=== PATIENT | female | born 1990 | race Caucasian/White ===

== ENCOUNTER → 2019-01-30 14:19 | Outpatient (REF) | payer OTHER, SELFPAY | LOC: LAB 14:19 | PROVIDERS: Visit Provider Internal Medicine | DX: R50.9 Fever, unspecified (principal); R05 Cough | CPT/HCPCS: 87400 ==

== ENCOUNTER 2019-07-19 18:54 | Emergency (ER) | payer OTHER, SELFPAY ==
[2019-07-19 19:00] VITALS: BP 146/71; PULSE 83; RESP 18; TEMP 36.9; O2SAT 99
--- NOTE | 2019-07-19 19:35 | DI.CT.S_ITS ---
PROCEDURE: CT CERVICAL SPINE WO CON INDICATIONS: head injury with memory loss TECHNIQUE: Noncontrast 3 mm thick sections acquired from the skull base to the T4 level. Sagittal and coronal reformats were then constructed. For radiation dose reduction, the following was used: automated exposure control, adjustment of mA and/or kV according to patient size. COMPARISON: [facility], CT, CT HEAD/BRAIN WO CON, 07/19/2019, 20:13. FINDINGS: Image quality: Excellent. Bones: No fractures or dislocations. Visualized superior ribs are intact. Soft tissues: Prevertebral soft tissues are normal in thickness. No paravertebral hematomas. No apical pneumothoraces. Note is made of small air-fluid levels within the maxillary sinuses bilaterally, partially visualized. IMPRESSION: No trauma found. Small to moderate bilateral maxillary sinus air-fluid levels incidentally noted, more likely inflammatory than from trauma by appearance. These are only partially visualized. Dictated by: Jeremias Liu M.D. on 07/19/2019 at 20:44 Approved by: Jeremias Liu M.D. on 07/19/2019 at 20:46
--- NOTE | 2019-07-19 19:35 | DI.CT.S_ITS ---
PROCEDURE: CT HEAD/BRAIN WO CON INDICATIONS: head injury with memory loss TECHNIQUE: Noncontrast 4.5 mm thick angled axial sections acquired from the foramen magnum to the vertex, with coronal and sagittal reformats. For radiation dose reduction, the following was used: automated exposure control, adjustment of mA and/or kV according to patient size. COMPARISON: None. FINDINGS: Image quality: Excellent. CSF spaces: Basal cisterns are patent. No extra-axial fluid collections. Ventricles are normal in size and shape. Brain: No midline shift. No intracranial masses or hemorrhage. Culver-white matter interface is normal. Skull and face: Calvarium and visualized facial bones are intact, without suspicious lesions. Sinuses: Visualized sinuses and mastoids are clear. IMPRESSION: Trauma to the head is not identified, source of memory loss is not found. Dictated by: Jeremias Liu M.D. on 07/19/2019 at 20:43 Approved by: Jeremias Liu M.D. on 07/19/2019 at 20:44
--- NOTE | 2019-07-19 19:36 | DI.RAD.S_ITS ---
PROCEDURE: XR ANKLE RT 2V INDICATIONS: Fall, R ankle pain TECHNIQUE: 2 views of the ankle were acquired. COMPARISON: [facility], , ANKLE 3 VIEWS RIGHT, 06/19/2008, 17:06. FINDINGS: Bones: No fractures or dislocations. Ankle mortise is normally aligned. No suspicious bony lesions. Soft tissues: No tibiotalar joint effusion. Achilles tendon appears normal. IMPRESSION: No trauma found. Dictated by: Jeremias Liu M.D. on 07/19/2019 at 20:48 Approved by: Jeremias Liu M.D. on 07/19/2019 at 20:49
--- NOTE | 2019-07-19 19:36 | DI.RAD.S_ITS ---
PROCEDURE: XR SHOULDER LT MIN 2V INDICATIONS: Left shoulder pain after fall. TECHNIQUE: 3 views of the shoulder were acquired. COMPARISON: None. FINDINGS: Bones: No fractures or dislocations. No suspicious bony lesions. Visualized ribs appear intact. Soft tissues: No suspicious soft tissue calcifications. IMPRESSION: Normal for age, source of current pain after trauma symptoms is not seen. Dictated by: Jeremias Liu M.D. on 07/19/2019 at 20:47 Approved by: Jeremias Liu M.D. on 07/19/2019 at 20:48
--- NOTE | 2019-07-19 19:41 | ED.HEATRA ---
HPI - Head Injury <JULIA Jara - Last Filed: 07/19/19 21:44> General Chief complaint: Head Injury Stated complaint: GLF, hit head change in mood and disposition Time Seen by Provider: 07/19/19 18:57 Source: patient and family Mode of arrival: ambulatory Limitations: no limitations History of Present Illness HPI Narrative: 29-year-old healthy female, presents emergency department today with her . Her states he found her at home acting ?loopy ?, he states he walked into the bathroom and found laundry detergent, Q-tips, and water all over, he also found the toilet broken. When he questions his she did not know how any of this happened, she did not know where her phone was, and has been states she told her breath when she did not have talked at her which was extremely unusual. Patient states she remembers the last thing being she was sitting on the toilet unsure remembers her coming home but does not remember anything that happened in between those events. Her thinks that she either tripped and hit her head or passed out. She has a history of syncopal episodes, denies any history of seizures. states that she is progressively regaining her normal mental status. She also complains of hematoma to her left forehead, left shoulder spasm, and a constant 3/10 aching pain as well as the constant right ankle 2/10 pain. Patient denies any headaches, dizziness, chest pain, fevers, shortness of breath, abdominal pain, vomiting, diarrhea, nausea, limb weakness, or vision loss. She denies any ingestion of drugs. Her states that she has not and ever ingested any drugs and does not believe she has done that. She also reports abrasions to her shins bilaterally. Related Data Home Medications Medication Instructions Recorded Confirmed No Known Home Medications 07/19/19 07/19/19 Allergies Allergy/AdvReac Type Severity Reaction Status Date / Time No Known Drug Allergies Allergy Verified 07/19/19 19:04 Review of Systems <JULIA Jara - Last Filed: 07/19/19 21:44> Review of Systems Narrative: REVIEW OF SYSTEMS: GENERAL: Denies fever or chills. HENT: Complains of head trauma, see HPI. EYES: No loss of vision, double vision, eye pain, or irritation. CARDIOVASCULAR: No chest pain or syncope. RESPIRATORY: No shortness of breath or cough. GASTROINTESTINAL: No nausea, vomiting, diarrhea, or constipation. GENITOURINARY: No flank pain or dysuria. MUSCULOSKELETAL: Complains of right ankle and left shoulder pain, see HPI. INTEGUMENTARY: No rash, lesions, or pruritus. NEURO: Reports of memory loss, see HPI. PSYCH: Reports behavior changes, see HPI. PFSH <JULIA Jara - Last Filed: 07/19/19 21:44> Medical History No significant medical problems (Acute) Social History Smoking Status: Current some day smoker Social History Smoking Status: Current some day smoker Exam <JULIA Jara - Last Filed: 07/19/19 21:44> Initial Vital Signs Initial Vital Signs: Vital Signs Temperature 98.4 F 07/19/19 19:00 Pulse Rate 83 07/19/19 19:00 Respiratory Rate 18 07/19/19 19:00 Blood Pressure 146/71 H 07/19/19 19:00 Pulse Oximetry 99 07/19/19 19:00 PHYSICAL EXAMINATION: GENERAL: Well groomed, alert, and cooperative. Answers questions promptly and appropriately. Vital signs noted. Has been states she is still acting a little ?goofy ?. HENT: 4 cm x 4 cm hematoma to left forehead with slight tenderness on palpation. No tenderness to palpation of other parts of skull. Ear canals patent without blood. Oral mucosa is pink and moist. Patient appears to have bitten the left side of her tongue, bleeding controlled. EYES: EMOIs, PERRLA, Conjunctiva pink, sclera white, no periorbital swelling. NECK: Nontender to palpation, however reports that she does not have her normal mentation status the nexus criteria cannot be used. CHEST: Normal to inspection and without deformities. CARDIOVASCULAR: S1 and S2 sounds normal. Regular rate and rhythm, no murmurs, clicks, or bruits. No pedal edema. RESPIRATORY: Normal respiratory rate, trachea midline, airway patent. No stridor, nasal flaring or accessory muscle use. Lungs are clear in all swanson without wheeze, rhonchi, or crackles. GASTROINTESTINAL: Bowel sounds normoactive. Abdomen is soft and non-tender. No organomegaly. MUSCULOSKELETAL: Tenderness to palpation of anterior aspect of right ankle, small hematoma 1cm in diameter noted, full range of motion. Tenderness to left shoulder, full range of motion, no swelling or ecchymosis present. Superficial abrasions noted to shins bilaterally. No tenderness to thoracic or cervical spine. Normal gait and coordination. Equal tone and mass bilaterally. EXTREMITIES: CMS intact. Moves all extremities. SKIN: Warm, dry, soft, appropriate color for ethnicity. No lesions, rashes, or wounds. NEURO: Alert and Oriented X 3. Good coordination. No ataxia, or sensory deficits, or cognitive issues. NIH score 0. PSYCH: Appropriate affect and mood. <Carin Adams DO - Last Filed: 07/24/19 05:49> Initial Vital Signs Initial Vital Signs: Vital Signs Temperature 98.4 F 07/19/19 19:00 Pulse Rate 83 07/19/19 19:00 Respiratory Rate 18 07/19/19 19:00 Blood Pressure 146/71 H 07/19/19 19:00 Pulse Oximetry 99 07/19/19 19:00 Scores <JULIA Jara - Last Filed: 07/19/19 21:44> NIH Stroke Scale Level of Conciousness: Alert, keenly responsive Ask month/age: Answers both questions correctly. Open/close eyes, close hand: Performs both tasks correctly Best gaze horizontal: Normal Visual swanson: No visual loss Facial palsy: Normal symetrical movement Left arm drift: No drift for full 10 sec Right arm drift: No drift for full 10 sec Left leg drift: No drift for full 10 sec Right leg drift: No drift for full 10 sec Limb ataxia: Absent Sensory on face/arms/legs: Normal, no sensory loss Best language: No aphasia, normal Dysarthria: Normal Extinction or inattention: No abnormality Total NIH Stroke scale score: 0 Course <JULIA Jara - Last Filed: 07/19/19 21:44> Course Course Narrative: Patient's relates that her mentation status has returned to normal after the testing. Patient continues to deny headaches or back pain. Orders Ordered: ED Orders 07/19/19 19:30 Complete Blood Count AUTO DIFF Stat Ethanol (ETOH) Stat Partial Thromboplastin Time Stat Prothrombin Time INR Stat 07/19/19 19:35 CT cervical spine wo con Stat CT head/brain wo con Stat 07/19/19 19:36 XR ankle RT 2V Stat XR shoulder LT min 2V Stat 07/19/19 19:55 Urine Drug Screen, Rapid Stat Consultations Consultation #1: Patient was staffed [facility] Dr[facility] Jolley. Vital Signs Vital signs: Vital Signs - 8 hr 07/19/19 19:00 Temperature 98.4 F Pulse Rate 83 Respiratory Rate 18 Blood Pressure 146/71 H Pulse Oximetry 99 <Carin Adams DO - Last Filed: 07/24/19 05:49> Orders Ordered: ED Orders 07/19/19 19:30 Complete Blood Count AUTO DIFF Stat Ethanol (ETOH) Stat Partial Thromboplastin Time Stat Prothrombin Time INR Stat 07/19/19 19:35 CT cervical spine wo con Stat CT head/brain wo con Stat 07/19/19 19:36 XR ankle RT 2V Stat XR shoulder LT min 2V Stat 07/19/19 19:55 Urine Drug Screen, Rapid Stat Vital Signs Vital signs: Vital Signs - 8 hr 07/19/19 19:00 Temperature 98.4 F Pulse Rate 83 Respiratory Rate 18 Blood Pressure 146/71 H Pulse Oximetry 99 MDM - Head Injury <JULIA Jara - Last Filed: 07/19/19 21:44> Medical Records Attestation: I reviewed the patient's medical records. Lab Data Attestation: I reviewed the patient's lab results. Result diagrams: 07/19/19 19:30 Labs: Lab Results 07/19/19 07/19/19 07/19/19 Range/Units 19:30 19:30 19:30 WBC 6.8 (4.5-11.0) X10^3/uL RBC 4.36 (4.0-5.2) X10^6/uL Hgb 14.3 (12.0-16.0) g/dL Hct 41.4 (36-46) % MCV 95.0 (80-100) fL MCH 32.8 (26-34) PG MCHC 34.5 (30-36) % RDW 12.5 (11.6-14.8) % Plt Count 180 (150-400) X10^3/uL Neut % (Auto) 73.2 (50-75) % Lymph % (Auto) 15.6 L (25-40) % [place] % (Auto) 9.8 (3-14) % Eos % (Auto) 0.6 L (2-4) % Baso % (Auto) 0.8 (0-2) % Neut # (Auto) 5000 (8971-9443) /uL Lymph # (Auto) 1100 (5393-9225) /uL [place] # (Auto) 700 (0-900) /uL Eos # (Auto) 0 (0-450) /uL Baso # (Auto) 100 (0-100) /uL PT 11.8 (10.1-12.7) SECONDS INR 1.0 (0.9-1.3) APTT 27 (26.4-36.2) SECONDS Urine Opiates Screen (Negative) Ur Oxycodone Screen (Negative) Urine Methadone Screen (Negative) Ur Barbiturates Screen (Negative) U Tricyclic Antidepress (Negative) Ur Phencyclidine Scrn (Negative) Ur Amphetamines Screen (Negative) U Methamphetamines Scrn (Negative) Ur MDMA Scrn (Ecstasy) (Negative) U Benzodiazepines Scrn (Negative) Urine Cocaine Screen (Negative) U Marijuana (THC) Screen (Negative) Ethyl Alcohol < 10 ( - 10) mg/dL 07/19/19 Range/Units 19:55 WBC (4.5-11.0) X10^3/uL RBC (4.0-5.2) X10^6/uL Hgb (12.0-16.0) g/dL Hct (36-46) % MCV (80-100) fL MCH (26-34) PG MCHC (30-36) % RDW (11.6-14.8) % Plt Count (150-400) X10^3/uL Neut % (Auto) (50-75) % Lymph % (Auto) (25-40) % [place] % (Auto) (3-14) % Eos % (Auto) (2-4) % Baso % (Auto) (0-2) % Neut # (Auto) (7901-6172) /uL Lymph # (Auto) (9886-4682) /uL [place] # (Auto) (0-900) /uL Eos # (Auto) (0-450) /uL Baso # (Auto) (0-100) /uL PT (10.1-12.7) SECONDS INR (0.9-1.3) APTT (26.4-36.2) SECONDS Urine Opiates Screen Negative (Negative) Ur Oxycodone Screen Negative (Negative) Urine Methadone Screen Negative (Negative) Ur Barbiturates Screen Negative (Negative) U Tricyclic Antidepress Negative (Negative) Ur Phencyclidine Scrn Negative (Negative) Ur Amphetamines Screen Negative (Negative) U Methamphetamines Scrn Negative (Negative) Ur MDMA Scrn (Ecstasy) Negative (Negative) U Benzodiazepines Scrn Negative (Negative) Urine Cocaine Screen Negative (Negative) U Marijuana (THC) Screen Negative (Negative) Ethyl Alcohol ( - 10) mg/dL Point of Care Testing Test Results Negative Urine Dip Bedside Urine Glucose Negative Bedside Urine Bilirubin - Negative Bedside Urine Ketone + 15 Urine Specific [place] 1.020 Bedside Urine Occult Blood - Negative Bedside Urine pH 5.5 Bedside Urine Protein + 30 Bedside Urine Urobilinogen - Negative Bedside Urine Nitrite - Negative Bedside Urine Leukocytes - Negative Esterase Imaging Data Shoulder XR: Radiologist's impression: [address] [address] XRay Report Signed Patient: Dhara Lorenzo EMR#: [id number] : 1990Acct:[id number] Age/Sex: 29 / FDate of Service: 07/19/19 Loc: ED Accession Number: [id number] Procedure: XR shoulder LT min 2V Ordering Provider: Tasia Phipps PROCEDURE: XR SHOULDER LT MIN 2V INDICATIONS: Left shoulder pain after fall. TECHNIQUE: 3 views of the shoulder were acquired. COMPARISON: None. FINDINGS: Bones: No fractures or dislocations. No suspicious bony lesions. Visualized ribs appear intact. Soft tissues: No suspicious soft tissue calcifications. IMPRESSION: Normal for age, source of current pain after trauma symptoms is not seen. Dictated by: Jeremias Liu M.D. on 07/19/2019 at 20:47 Approved by: Jeremias Liu M.D. on 07/19/2019 at 20:48 Ankle XR: Radiologist's impression: [address] [address] XRay Report Signed Patient: Dhara Lorenzo EMR#: [id number] : 1990Acct:[id number] Age/Sex: 29 / FDate of Service: 07/19/19 Loc: ED Accession Number: [id number] Procedure: XR ankle RT 2V Ordering Provider: Tasia Phipps PROCEDURE: XR ANKLE RT 2V INDICATIONS: Fall, R ankle pain TECHNIQUE: 2 views of the ankle were acquired. COMPARISON: [facility], , ANKLE 3 VIEWS RIGHT, 06/19/2008, 17:06. FINDINGS: Bones: No fractures or dislocations. Ankle mortise is normally aligned. No suspicious bony lesions. Soft tissues: No tibiotalar joint effusion. Achilles tendon appears normal. IMPRESSION: No trauma found. Dictated by: Jeremias Liu M.D. on 07/19/2019 at 20:48 Approved by: Jeremias Liu M.D. on 07/19/2019 at 20:49 CT scan - head: Radiologist's impression: [place] [address] CT Scan Report Signed Patient: Dhara Lorenzo EMR#: [id number] : 1990Acct:[id number] Age/Sex: 29 / FDate of Service: 07/19/19 Loc: ED Accession Number: [id number] Procedure: CT head/brain wo con Ordering Provider: Tasia Phipps PROCEDURE: CT HEAD/BRAIN WO CON INDICATIONS: head injury with memory loss TECHNIQUE: Noncontrast 4.5 mm thick angled axial sections acquired from the foramen magnum to the vertex, with coronal and sagittal reformats. For radiation dose reduction, the following was used: automated exposure control, adjustment of mA and/or kV according to patient size. COMPARISON: None. FINDINGS: Image quality: Excellent. CSF spaces: Basal cisterns are patent. No extra-axial fluid collections. Ventricles are normal in size and shape. Brain: No midline shift. No intracranial masses or hemorrhage. Culver-white matter interface is normal. Skull and face: Calvarium and visualized facial bones are intact, without suspicious lesions. Sinuses: Visualized sinuses and mastoids are clear. IMPRESSION: Trauma to the head is not identified, source of memory loss is not found. Dictated by: Jeremias Liu M.D. on 07/19/2019 at 20:43 Approved by: Jeremias Liu M.D. on 07/19/2019 at 20:[address]: Radiologist's impression: [address] [address] [address] Scan Report Signed Patient: Dhara Lorenzo EMR#: [id number] : 1990Acct:[id number] Age/Sex: 29 / FDate of Service: 07/19/19 Loc: ED Accession Number: [id number] Procedure: CT cervical spine wo con Ordering Provider: Tasia Phipps PROCEDURE: CT CERVICAL SPINE WO CON INDICATIONS: head injury with memory loss TECHNIQUE: Noncontrast 3 mm thick sections acquired from the skull base to the T4 level. Sagittal and coronal reformats were then constructed. For radiation dose reduction, the following was used: automated exposure control, adjustment of mA and/or kV according to patient size. COMPARISON: [facility], CT, CT HEAD/BRAIN WO CON, 07/19/2019, 20:13. FINDINGS: Image quality: Excellent. Bones: No fractures or dislocations. Visualized superior ribs are intact. Soft tissues: Prevertebral soft tissues are normal in thickness. No paravertebral hematomas. No apical pneumothoraces. Note is made of small air-fluid levels within the maxillary sinuses bilaterally, partially visualized. IMPRESSION: No trauma found. Small to moderate bilateral maxillary sinus air-fluid levels incidentally noted, more likely inflammatory than from trauma by appearance. These are only partially visualized. Dictated by: Jeremias Liu M.D. on 07/19/2019 at 20:44 Approved by: Jeremias Liu M.D. on 07/19/2019 at 20:46 MDM Narrative Medical decision making narrative: Differential include fall with concussion (most likely due to location of injuries, patient was ambulatory after fall, description of damage done to the bathroom, lasting patient remembers was sitting on the toilet-which could be a possible vagal such as well), seizure (less likely due to location of injury, no history of seizures, however difficult to rule this out), stroke (less likely did NIH score 0, negative CT scan, no risk factors), assault (less likely as story matches injuries on examination, patient denies any safety issues). Less likely cardiac as patient remains in normal sinus rhythm via monitor, a history of heart issues, no cardiac symptoms such as chest pain, no symptoms with exertion). Since symptoms are resolving and her is at home with her, discharge is reasonable. Less likely ingestion as U tox was negative. Less likely concern for fractures as x-rays were negative. Strict return precautions given and follow-up instructions discussed. <Carin Adams, DO - Last Filed: 07/24/19 05:49> Lab Data Labs: Lab Results 07/19/19 07/19/19 07/19/19 Range/Units 19:30 19:30 19:30 WBC 6.8 (4.5-11.0) X10^3/uL RBC 4.36 (4.0-5.2) X10^6/uL Hgb 14.3 (12.0-16.0) g/dL Hct 41.4 (36-46) % MCV 95.0 (80-100) fL MCH 32.8 (26-34) PG MCHC 34.5 (30-36) % RDW 12.5 (11.6-14.8) % Plt Count 180 (150-400) X10^3/uL Neut % (Auto) 73.2 (50-75) % Lymph % (Auto) 15.6 L (25-40) % [place] % (Auto) 9.8 (3-14) % Eos % (Auto) 0.6 L (2-4) % Baso % (Auto) 0.8 (0-2) % Neut # (Auto) 5000 (5484-3886) /uL Lymph # (Auto) 1100 (5835-1166) /uL [place] # (Auto) 700 (0-900) /uL Eos # (Auto) 0 (0-450) /uL Baso # (Auto) 100 (0-100) /uL PT 11.8 (10.1-12.7) SECONDS INR 1.0 (0.9-1.3) APTT 27 (26.4-36.2) SECONDS Urine Opiates Screen (Negative) Ur Oxycodone Screen (Negative) Urine Methadone Screen (Negative) Ur Barbiturates Screen (Negative) U Tricyclic Antidepress (Negative) Ur Phencyclidine Scrn (Negative) Ur Amphetamines Screen (Negative) U Methamphetamines Scrn (Negative) Ur MDMA Scrn (Ecstasy) (Negative) U Benzodiazepines Scrn (Negative) Urine Cocaine Screen (Negative) U Marijuana (THC) Screen (Negative) Ethyl Alcohol < 10 ( - 10) mg/dL 07/19/19 Range/Units 19:55 WBC (4.5-11.0) X10^3/uL RBC (4.0-5.2) X10^6/uL Hgb (12.0-16.0) g/dL Hct (36-46) % MCV (80-100) fL MCH (26-34) PG MCHC (30-36) % RDW (11.6-14.8) % Plt Count (150-400) X10^3/uL Neut % (Auto) (50-75) % Lymph % (Auto) (25-40) % [place] % (Auto) (3-14) % Eos % (Auto) (2-4) % Baso % (Auto) (0-2) % Neut # (Auto) (5091-6947) /uL Lymph # (Auto) (1723-4275) /uL [place] # (Auto) (0-900) /uL Eos # (Auto) (0-450) /uL Baso # (Auto) (0-100) /uL PT (10.1-12.7) SECONDS INR (0.9-1.3) APTT (26.4-36.2) SECONDS Urine Opiates Screen Negative (Negative) Ur Oxycodone Screen Negative (Negative) Urine Methadone Screen Negative (Negative) Ur Barbiturates Screen Negative (Negative) U Tricyclic Antidepress Negative (Negative) Ur Phencyclidine Scrn Negative (Negative) Ur Amphetamines Screen Negative (Negative) U Methamphetamines Scrn Negative (Negative) Ur MDMA Scrn (Ecstasy) Negative (Negative) U Benzodiazepines Scrn Negative (Negative) Urine Cocaine Screen Negative (Negative) U Marijuana (THC) Screen Negative (Negative) Ethyl Alcohol ( - 10) mg/dL Point of Care Testing Test Results Negative Urine Dip Bedside Urine Glucose Negative Bedside Urine Bilirubin - Negative Bedside Urine Ketone + 15 Urine Specific [place] 1.020 Bedside Urine Occult Blood - Negative Bedside Urine pH 5.5 Bedside Urine Protein + 30 Bedside Urine Urobilinogen - Negative Bedside Urine Nitrite - Negative Bedside Urine Leukocytes - Negative Esterase Discharge Plan Departure Patient Disposition: Home Clinical Impression: Closed head injury Qualifiers: Encounter type: initial encounter Qualified Code(s): S09.90XA - Unspecified injury of head, initial encounter Discharge Date/Time: 07/19/19 21:35 Instructions: Concussion, DI for Closed Head Injury Activity Restrictions/Additional Instructions: Thank you for entrusting me with your care today. As discussed, her labs were negative for any concerning findings, your x-rays did not show any fractures. It is possible that you have a mild concussion. Please reduce brain activity such as excessive TV or strenuous exercise for the next week. Follow up with your primary care provider in the next week if needed. Return emergency department if you experience syncope, seizures, high fevers, vomiting, or other concerning symptoms. Prescriptions: No Action No Known Home Medications RF: 0 Stand Alone Forms: Work Release Note
[2019-07-19 19:43] LABS: Add Manual Diff / Slide Review NO; Basophils Absolute Auto 100 /uL (0-100); Basophils Percent Auto 0.8 % (0-2); Eosinophils Absolute Auto 0 /uL (0-450); Eosinophils Percent Auto 0.6 % (2-4); Hematocrit 41.4 % (36-46); Hemoglobin 14.3 g/dL (12.0-16.0); Lymphocytes Absolute Auto 1100 /uL (1100-4500); Lymphocytes Percent Auto 15.6 % (25-40); Mean Corpuscular HGB Conc 34.5 % (30-36); Mean Corpuscular Hemoglobin 32.8 PG (26-34); Monocytes Absolute Auto 700 /uL (0-900); Monocytes Percent Auto 9.8 % (3-14); Neutrophils Absolute Auto 5000 /uL (1500-7000); Neutrophils Percent Auto 73.2 % (50-75); Platelet Count 180 X10^3/uL (150-400); Red Blood Cell Count 4.36 X10^6/uL (4.0-5.2); Red Cell Distribution Width 12.5 % (11.6-14.8); White Blood Cell Count 6.8 X10^3/uL (4.5-11.0)
[2019-07-19 19:51] LABS: Prothrombin Time 11.8 SECONDS (10.1-12.7)
[2019-07-19 19:53] LABS: PTT Partial Thromboplastin Tim 27 SECONDS (26.4-36.2)
[2019-07-19 19:55] LABS: Ethanol (ETOH) < 10 mg/dL
[2019-07-19 20:36] LABS: Urine Amphetamines Negative (Negative); Urine Barbiturates Negative (Negative); Urine Benzodiazepines Negative (Negative); Urine Cocaine Negative (Negative); Urine MDMA Negative (Negative); Urine Methadone Negative (Negative); Urine Methamphetamines Negative (Negative); Urine Morphine/Opi cutoff 2000 Negative (Negative); Urine Oxycodone Negative (Negative); Urine Phencyclidine Negative (Negative); Urine Tetrahydrocannabinol Negative (Negative); Urine Tricyclic Antidepressant Negative (Negative)
[2019-07-19 21:34] VITALS: BP 121/63; PULSE 77; O2SAT 98
== END 2019-07-19 21:35 | disposition home or self-care (01) ==
PROVIDERS: Emergency Provider Nurse Practitioner
DX: S09.90XA Unspecified injury of head, initial encounter (principal); W19.XXXA Unspecified fall, initial encounter
CPT/HCPCS: 36591; 70450; 72125; 73030; 73600; 80305; 80320; 81003; 81025; 85025; 85610; 85730; 99282; 99284

== ENCOUNTER → 2020-06-18 12:13 | Outpatient (CLI) | payer BC, SELFPAY ==
--- NOTE | 2020-06-18 | DI.US.S_ITS ---
PROCEDURE: US OB <= 14 WEEKS FETUS INDICATIONS: SIZE AND DATES OUTSIDE/PRIOR DATING DATA: Last menstrual period (LMP): 04/27/20. LMP-based estimated date of delivery (ARMOND): 02/01/21 . First dating scan (date and location): This study . Estimated date of delivery (ARMOND) from first dating scan: 02/05/21 . TECHNIQUE: Real-time scanning was performed of the fetus and maternal pelvic organs, with image documentation. Endovaginal scanning was also performed to better visualize the fetus and maternal ovaries. COMPARISON: None. FINDINGS: Embryo: Single living intrauterine gestation with heart rate 135 beats per minute, and with crown-rump length of 8 mm which correlates with a gestational age of 6 weeks 6 days, +/-5 days. Measurement variability in dating: +/- 4 weeks by LMP, +/- 7 days by mean sac diameter (use before 6 weeks gestation if crown-rump length not able to be measured), +/- 5 days by crown-rump length (up to 8 weeks 6 days gestation), +/- 7 days by crown-rump length (up to 13 weeks 6 days gestation). Maternal organs: Ovaries normal considering gestational status . Limited images through the kidneys demonstrate no hydronephrosis. Note is made of a left posterolateral uterine fibroid, intramural, measuring up to 1.6 x 1.6 x 1.7 cm. IMPRESSION: Single living intrauterine gestation, with delivery date projected to be centered on 02/05/21, +/-5 days. Follow-up anatomic survey is recommended at approximately 20 weeks gestation. Dictated by: Jeremias Liu M.D. on 06/18/2020 at 13:22 Approved by: Jeremias Liu M.D. on 06/18/2020 at 13:24
[2020-06-18 13:14] LABS: Add Manual Diff / Slide Review NO; Basophils Absolute Auto 0 /uL (0-100); Basophils Percent Auto 0.7 % (0-2); Eosinophils Absolute Auto 0 /uL (0-450); Eosinophils Percent Auto 0.5 % (2-4); Hematocrit 40.5 % (36-46); Hemoglobin 14.1 g/dL (12.0-16.0); Lymphocytes Absolute Auto 1100 /uL (1100-4500); Lymphocytes Percent Auto 16.3 % (25-40); Mean Corpuscular HGB Conc 34.9 % (30-36); Mean Corpuscular Volume 94.5 fL (80-100); Monocytes Absolute Auto 600 /uL (0-900); Monocytes Percent Auto 8.7 % (3-14); Neutrophils Absolute Auto 4800 /uL (1500-7000); Neutrophils Percent Auto 73.8 % (50-75); Platelet Count 187 X10^3/uL (150-400); Red Blood Cell Count 4.28 X10^6/uL (4.0-5.2); Red Cell Distribution Width 12.4 % (11.6-14.8); White Blood Cell Count 6.5 X10^3/uL (4.5-11.0)
[2020-06-18 14:31] LABS: Thyroid Stimulating Hormone 0.811 uIU/mL (0.47-4.68)
[2020-06-18 15:52] LABS: Hepatitis B Surface Antigen NEGATIVE s/c (NEGATIVE); Rubella Antibody IgG 67.3 IU/mL (>15)
[2020-06-18 18:05] LABS: HIV 1 & 2 Ab/Ag 4th Gen Combo NEGATIVE (NEGATIVE); Hep C Virus Ab w/Reflex Quant REACTIVE s/c (NEGATIVE)
[2020-06-19 05:39] LABS: RPR Screen Non Reactive (Non Reactive)
[2020-06-19 07:36] LABS: HSV 2 IGG AB 6.12 index (0.00-0.90)
[2020-06-19 10:10] LABS: Varicella IgG Antibody 995 index (Immune >165)
[2020-06-19 20:09] LABS: Treponema pallidum Antibodies Non Reactive (Non Reactive)
== END ==
PROVIDERS: PCP Family Medicine; Referring Provider Family Medicine
DX: Z34.81 Encounter for supervision of other normal pregnancy, first trimester (principal); Z3A.01 Less than 8 weeks gestation of pregnancy
CPT/HCPCS: 36415; 76801; 76830; 84443; 85025; 86592; 86695; 86696; 86762; 86780; 86787; 86803; 86850; 86900; 86901; 87340; 87389; 87522

== ENCOUNTER → 2020-09-10 09:09 | Outpatient (CLI) | payer BC, SELFPAY ==
--- NOTE | 2020-09-10 | DI.US.S_ITS ---
PROCEDURE: US OB LIMITED INDICATIONS: ANATOMY SCAN OUTSIDE/PRIOR DATING DATA: Last menstrual period (LMP): April 27, 2020. LMP-based estimated date of delivery (ARMOND): February 02, 2020. First dating scan (date and location): June 18, 2020. Estimated date of delivery (ARMOND) from first dating scan: February 06, 2020. TECHNIQUE: Real-time scanning was performed of the fetus, with image documentation. Endovaginal scanning: Performed COMPARISON: [facility], OB <= 14 WEEKS FETUS, 06/18/2020, 12:24. FINDINGS: A single living intrauterine gestation is present. Presentation: Transverse with spine to the maternal right Placenta: Placental position is posterior. Placenta is low-lying at 1.8 centimeters from the internal cervical os. Amniotic fluid index: 10.4 cm, normal range is 5-24 cm. heart rate: 144 beats per minute. Maternal cervical canal: Closed and 4.2 cm long. Normal lower limit is 2.5 cm. Estimated gestational age from initial scan: 18 weeks 6 days. Estimated gestational age from current scan: 17 weeks 5 days. Estimated weight 213 grams; 6th percentile. IMPRESSION: 1. Single living intrauterine fetus. 2. Normal amniotic fluid index. 3. Low lying placenta approximately 1.8 centimeters from the internal cervical os. Recommend follow-up obstetrical ultrasound in 4 weeks. 3. Estimated weight 213 grams; 6 percentile. Recommend re-evaluation at time of follow-up obstetrical ultrasound in 4 weeks to exclude developing IUGR. 4. anatomic survey suboptimal secondary to early gestational age. Recommend anatomic survey in 4 weeks when gestational age is expected to be approximately 22 weeks. Dictated by: Deja Morris MD, PhD on 09/10/2020 at 13:06 Approved by: Deja Morris MD, PhD on 09/10/2020 at 13:20
== END ==
PROVIDERS: PCP Family Medicine; Referring Provider Family Medicine; Visit Provider Family Medicine
DX: Z36.89 Encounter for other specified antenatal screening (principal); Z3A.17 17 weeks gestation of pregnancy
CPT/HCPCS: 76815

== ENCOUNTER → 2020-10-08 13:13 | Outpatient (CLI) | payer BC, SELFPAY ==
--- NOTE | 2020-10-08 13:15 | DI.US.S_ITS ---
PROCEDURE: US OB >= 14 WEEKS FETUS INDICATIONS: Low lying placenta; 20 week Anatomy scan OUTSIDE/PRIOR DATING DATA: Last menstrual period (LMP): 04/27/20. LMP-based estimated date of delivery (ARMOND): 02/01/21 . First dating scan (date and location): 06/18/20 . Estimated date of delivery (ARMOND) from first dating scan: 02/05/21 . TECHNIQUE: Real-time scanning was performed of the fetus, with image documentation and biometric measurements. Endovaginal scanning: Not needed COMPARISON: None. FINDINGS: General: A single living intrauterine gestation is present. Presentation: Transverse head to the maternal right. Placenta: Placental position is posterior , without previa. The lower placental margin is 2.7 cm from the internal os of the cervical canal. Amniotic fluid index: 12.0 cm, normal range is 5-24 cm. heart rate: 147 beats per minute. Maternal cervical canal: 5.0 cm long. Normal lower limit is 2.5 cm. biometrics: Biparietal diameter: 5.2 cm, 21 weeks 5 days Head circumference: 20.5 cm, 22 weeks 4 days Abdominal circumference: 16.8 cm, 21 weeks 5 days Femur length: 3.8 cm, 22 weeks 0 days Estimated gestational age from initial scan: 22 weeks 6 days Composite gestational age from present scan: 22 weeks 0 days Estimated weight and percentile: 464 g, 10th percentile Measurement variability for biometric dating: +/- 7 days from 14 weeks to 15 weeks 6 days gestation, +/- 10 days from 16 weeks to 21 weeks 6 days gestation, +/- 2 weeks from 22 weeks to 27 weeks 6 days gestation, +/- 3 weeks for 28 weeks gestation or later. weight reference: 4500 g or EFW >90/95% is considered macrosomia or large for gestational age. EFW <10% is small for gestational age. EFW 5% or less is considered intra-uterine growth restriction. Anatomic survey: Neuro: Ventricles are non-dilated at less than 10 mm. Cisterna magna is normal at 3-11 mm. Cerebellum is normal in size and morphology. Nuchal skin fold: Normal at less than 6 mm between 14-21 weeks gestational age. Face: Nose and lips, facial profile are normal. Spine: No evidence for spina bifida. Heart: 4-chambered heart is not well seen, with poorly visualized ventricular outflow tracts. Diaphragm: Diaphragm is intact. Stomach: Left-sided stomach is present. Kidneys: No hydronephrosis. Normal is less than 5 mm in 2nd trimester, less than 7 mm in 3rd trimester. Cord: 3-vessel cord has orthotopic insertion. Bladder: Normal in size. Extremities: 3 of 4 extremities identified. IMPRESSION: Appropriate interval growth, no anomaly seen however the four-chamber view of heart and ventricular outflow tracts were poorly visualized due to positioning and also the right upper extremity was not well visualized. Follow-up anatomic survey completion is recommended in approximately 10 days-2 weeks. Resolution of the concern for low-lying placenta with the placental margin now documented at 2.7 cm cephalad from the internal os of the cervical canal. Dictated by: Jeremias Liu M.D. on 10/08/2020 at 16:23 Approved by: Jeremias Liu M.D. on 10/08/2020 at 16:29
== END ==
PROVIDERS: PCP Family Medicine; Referring Provider Family Medicine; Visit Provider Family Medicine
DX: Z36.89 Encounter for other specified antenatal screening (principal); O44.42 Low lying placenta NOS or without hemorrhage, second trimester; Z3A.22 22 weeks gestation of pregnancy
CPT/HCPCS: 76811

== ENCOUNTER → 2020-10-29 11:10 | Outpatient (CLI) | payer BC, SELFPAY ==
--- NOTE | 2020-10-29 | DI.US.S_ITS ---
PROCEDURE: US OB FOLLOW UP INDICATIONS: ANATOMY FOLLOW UP OUTSIDE/PRIOR DATING DATA: Last menstrual period (LMP): 04/27/20 . LMP-based estimated date of delivery (ARMOND): 02/01/21 . First dating scan (date and location): 06/18/20 . Estimated date of delivery (ARMOND) from first dating scan: 02/05/21 . TECHNIQUE: Real-time scanning was performed of the fetus, with image documentation. Endovaginal scanning: Not performed COMPARISON: [facility], OB >= 14 WEEKS FETUS, 10/08/2020, 13:37. [facility], OB LIMITED, 09/10/2020, 9:31. [facility], OB <= 14 WEEKS FETUS, 06/18/2020, 12:24. FINDINGS: A single living intrauterine gestation is present. Presentation: Transverse. Placenta: Placental position is posterior/low although inferior margin is 2.2 cm from the internal os, without previa. Amniotic fluid index: 13.6 cm, normal range is 5-24 cm. 3.6 cm largest pocket heart rate: 158 beats per minute. Maternal cervical canal: 4.4 cm long. Normal lower limit is 2.5 cm. Estimated gestational age from initial scan: 25 weeks 6 days Normal appearance of the four-chamber heart and outflow tracts. Normal appearance of the upper extremities bilaterally.. IMPRESSION: Single living intrauterine fetus Normal appearance of the bilateral upper extremities, four-chamber heart and outflow tracts. Of note, inferior margin of the placenta measures 2.2 cm from the internal os. Dictated by: Raza Uribe M.D. on 10/29/2020 at 13:26 Approved by: Raza Uribe M.D. on 10/29/2020 at 13:29
== END ==
PROVIDERS: PCP Family Medicine; Referring Provider Family Medicine; Visit Provider Family Medicine
DX: Z36.2 Encounter for other antenatal screening follow-up (principal); Z3A.25 25 weeks gestation of pregnancy
CPT/HCPCS: 76816

== ENCOUNTER → 2020-11-26 14:44 | Outpatient (CLI) | payer OTHER, SELFPAY ==
--- NOTE | 2020-11-26 | DI.US.S_ITS ---
PROCEDURE: OB FOLLOW UP INDICATIONS: SGA OUTSIDE/PRIOR DATING DATA: Last menstrual period (LMP): 04/27/20 . LMP-based estimated date of delivery (ARMOND): 01/13/21 . First dating scan (date and location): 06/18/20 . Estimated date of delivery (ARMOND) from first dating scan: 02/05/21 . TECHNIQUE: Real-time scanning was performed of the fetus, with image documentation and biometric measurements. Endovaginal scanning: Not performed COMPARISON: [facility], OB >= 14 WEEKS FETUS, 10/08/2020, 13:37. [facility], OB LIMITED, 09/10/2020, 9:31. [facility] OB <= 14 WEEKS FETUS, 06/18/2020, 12:24. [facility] OB FOLLOW UP, 10/29/2020, 11:23. FINDINGS: General: A single living intrauterine gestation is present. Presentation: Vertex Placenta: Placental position is posterior , without previa. Inferior tip of the placenta measures 3.3 cm from the internal os. Amniotic fluid index: 7.0 cm, normal range is 5-24 cm. heart rate: 139 beats per minute. Maternal cervical canal: 4.5 cm long. Normal lower limit is 2.5 cm. biometrics: Biparietal diameter: 6.7 cm, 26 weeks, 6 days Head circumference: 26.2 cm, 28 weeks 3 days Abdominal circumference: 25.1 cm, 29 weeks 2 days Femur length: 6.0 cm, 31 weeks 2 days Estimated gestational age from initial scan: 29 weeks 6 days Composite gestational age from present scan: 29 weeks 0 days Estimated weight and percentile: 1437 g, 31st percentile Measurement variability for biometric dating: +/- 7 days from 14 weeks to 15 weeks 6 days gestation, +/- 10 days from 16 weeks to 21 weeks 6 days gestation, +/- 2 weeks from 22 weeks to 27 weeks 6 days gestation, +/- 3 weeks for 28 weeks gestation or later. weight reference: 4500 g or EFW >90/95% is considered macrosomia or large for gestational age. EFW <10% is small for gestational age. EFW 5% or less is considered intra-uterine growth restriction. Other: Not applicable. IMPRESSION: Single living intrauterine fetus in vertex presentation demonstrating expected interval growth. No placenta previa identified Dictated by: Raza Uribe M.D. on 11/26/2020 at 15:49 Approved by: Raza Uribe M.D. on 11/26/2020 at 15:51
== END ==
PROVIDERS: PCP Family Medicine; Referring Provider Family Medicine; Visit Provider Family Medicine
DX: O36.5920 Maternal care for other known or suspected poor fetal growth, second trimester, not applicable or unspecified (principal); Z3A.29 29 weeks gestation of pregnancy
CPT/HCPCS: 76816

== ENCOUNTER → 2021-01-02 16:25 | Outpatient (ROUT) | payer OTHER, SELFPAY | PROVIDERS: Visit Provider Family Medicine | DX: Z34.90 Encounter for supervision of normal pregnancy, unspecified, unspecified trimester (principal) | CPT/HCPCS: 87081 ==

== ENCOUNTER → 2021-01-07 12:44 | Outpatient (CLI) | payer OTHER, SELFPAY ==
--- NOTE | 2021-01-07 | DI.US.S_ITS ---
PROCEDURE: US OB LIMITED INDICATIONS: SIZE LESS THAN DATES OUTSIDE/PRIOR DATING DATA: Last menstrual period (LMP): 04/27/20. LMP-based estimated date of delivery (ARMOND): 02/01/21 . First dating scan (date and location): 06/18/20 . Estimated date of delivery (ARMOND) from first dating scan: 02/05/21 . TECHNIQUE: Real-time scanning was performed of the fetus, with image documentation. Endovaginal scanning: Not needed COMPARISON: [facility], OB LIMITED, 09/10/2020, 9:31. [facility], OB LIMITED 14WKS OR LESS, 01/18/2007, 11:12. FINDINGS: A single living intrauterine gestation is present. Presentation: Vertex. Placenta: Placental position is posterior , without previa. Amniotic fluid index: 6.8 cm, normal range is 5-24 cm. heart rate: 110 beats per minute. Maternal cervical canal: 8.7 cm long. Normal lower limit is 2.5 cm. Estimated gestational age from initial scan: 35 weeks 6 days. Biometry: BPD 8.5 cm, 34 weeks 3 days; head circumference 32 point 5 cm, 37 weeks 0 days; abdominal circumference 31 0.6 cm, 35 weeks 6 days; femur length 6.2 cm, 35 weeks 5 days. Composite gestational age therefore is 35 weeks 5 days. Estimated weight is 2760 g, at the 47th percentile for current gestational age. IMPRESSION: Appropriate interval growth, current estimated weight is at the 47th percentile, normal. No anomaly is seen. The delivery date is projected to be centered on 02/05/21. Dictated by: Jeremias Liu M.D. on 01/07/2021 at 14:43 Approved by: Jeremias Liu M.D. on 01/07/2021 at 14:47
== END ==
PROVIDERS: PCP Family Medicine; Referring Provider Family Medicine; Visit Provider Family Medicine
DX: O36.5930 Maternal care for other known or suspected poor fetal growth, third trimester, not applicable or unspecified (principal); Z3A.34 34 weeks gestation of pregnancy
CPT/HCPCS: 76815

== ENCOUNTER → 2021-01-20 15:41 | Outpatient (CLI) | payer OTHER, SELFPAY ==
--- NOTE | 2021-01-20 15:42 | DI.US.S_ITS ---
PROCEDURE: US OB LIMITED INDICATIONS: OLIGOHYDRAMNIOS OUTSIDE/PRIOR DATING DATA: Last menstrual period (LMP): 04/27/2020. LMP-based estimated date of delivery (ARMOND): 02/01/2021 . First dating scan (date and location): 06/18/2020 . Estimated date of delivery (ARMOND) from first dating scan: 02/05/2021 . TECHNIQUE: Real-time scanning was performed of the fetus, with image documentation. Endovaginal scanning: No COMPARISON: [facility], OB LIMITED, 01/07/2021, 13:04. FINDINGS: A single living intrauterine gestation is present. Presentation: Vertex. Placenta: Placental position is posterior , without previa. Amniotic fluid index: 10.1 cm, normal range is 5-24 cm. heart rate: 120 beats per minute. Maternal cervical canal: 6 point cm long. Normal lower limit is 2.5 cm. Estimated gestational age from initial scan: 37 weeks 5 days IMPRESSION: Single living IUP redemonstrated and limited exam demonstrating normal amniotic fluid index measuring 10.1 cm Dictated by: Adrian Lau A Interpreted: Raza Uribe MD on 01/21/2021 at 8:56 Approved by: Raza Uribe M.D. on 01/21/2021 at 16:06
== END ==
PROVIDERS: PCP Family Medicine; Referring Provider Family Medicine; Visit Provider Family Medicine
DX: O41.03X0 Oligohydramnios, third trimester, not applicable or unspecified (principal); Z3A.37 37 weeks gestation of pregnancy
CPT/HCPCS: 76815

== ENCOUNTER → 2021-01-23 15:45 | Outpatient (CLI) | payer OTHER, SELFPAY ==
[2021-01-23 16:10] LABS: Add Manual Diff / Slide Review NO; Basophils Absolute Auto 100 /uL (0-100); Basophils Percent Auto 0.5 % (0-2); Eosinophils Absolute Auto 100 /uL (0-450); Eosinophils Percent Auto 1.3 % (2-4); Hematocrit 36.1 % (36-46); Hemoglobin 12.5 g/dL (12.0-16.0); Lymphocytes Absolute Auto 1500 /uL (1100-4500); Lymphocytes Percent Auto 14.8 % (25-40); Mean Corpuscular HGB Conc 34.7 % (30-36); Mean Corpuscular Hemoglobin 33.6 PG (26-34); Mean Corpuscular Volume 96.9 fL (80-100); Monocytes Absolute Auto 700 /uL (0-900); Monocytes Percent Auto 7.2 % (3-14); Neutrophils Absolute Auto 7900 /uL (1500-7000); Neutrophils Percent Auto 76.2 % (50-75); Platelet Count 149 X10^3/uL (150-400); Red Blood Cell Count 3.73 X10^6/uL (4.0-5.2); Red Cell Distribution Width 13.4 % (11.6-14.8); White Blood Cell Count 10.4 X10^3/uL (4.5-11.0)
== END ==
PROVIDERS: PCP Family Medicine; Referring Provider Family Medicine; Visit Provider Family Medicine
DX: Z34.90 Encounter for supervision of normal pregnancy, unspecified, unspecified trimester (principal)
CPT/HCPCS: 36415; 85025; 86850; 86900; 86901

== ENCOUNTER 2021-01-26 05:51 | Inpatient (IN) | payer OTHER, SELFPAY ==
--- NOTE | 2021-01-26 | PATH_ITS ---
[facility] Accession Number: [id number] . 01 Material submitted: . PART A: fallopian tube - LEFT [id number] TUBE PART B: fallopian tube - RIGHT FALLOPIAN TUBE . 02 Diagnosis: A. Left Fallopian Tube, Tubal Ligation: Segment of fallopian tube. No evidence of neoplasm. . B. Right Fallopian Tube, Tubal Ligation: Segment of fallopian tube. No evidence of neoplasm. [facility] 01/28/2021 1427 Local . 02 Electronically signed: . Endy Browning MD, PhD, Pathologist NPI- [id number] . 01 Gross description: . A. The specimen is received in formalin, labeled left fallopian tube and consists of a 1.5 cm in length by 0.7 cm in diameter portion of fallopian tube with a rosenberg-pink smooth serosa. Sectioning reveals a rosenberg mucosa and a stellate lumen measuring 0.3 cm in diameter. The specimen is serially sectioned and entirely submitted in cassette A1. B. The specimen is received in formalin, labeled right fallopian tube and consists of a 2.0 cm in length by 0.7 cm in diameter portion of fallopian tube with a rosenberg-pink smooth serosa. Sectioning reveals a rosenberg mucosa and a stellate lumen measuring 0.2 cm in diameter. The specimen is serially sectioned and entirely submitted in cassette B1. ([id number]) /MRV 01/27/2021 1229 Local . 02 Microscopic: . A. A complete cross-section of fallopian tube is seen. . B. A complete cross-section of fallopian tube is seen. . 02 Pathologist provided ICD-10: Z30.2 . 02 CPT . 522295, [id number] Performed at: 01 [facility] [address] [place] [address], [place], [place] [id number] MD Luis Alberto Sheppard MD Phone: [phone] Performed at: 02 [facility] [address] [place], [place] [id number] MD Cheyenne Xiong MD Phone: [phone]
[2021-01-26 06:35] VITALS: BP 140/83
[2021-01-26 06:58] LABS: COVID19 -Nasal RAPID Negative (Negative)
[2021-01-26] MEDS: LACTATED RINGERS 1,000 ML 1000 ML IV ×2 (07:00→08:18)
[2021-01-26 07:12] LABS: Add Manual Diff / Slide Review NO; Basophils Absolute Auto 100 /uL (0-100); Basophils Percent Auto 0.5 % (0-2); Eosinophils Absolute Auto 200 /uL (0-450); Eosinophils Percent Auto 1.8 % (2-4); Hematocrit 36.3 % (36-46); Hemoglobin 12.3 g/dL (12.0-16.0); Lymphocytes Absolute Auto 1700 /uL (1100-4500); Lymphocytes Percent Auto 14.8 % (25-40); Mean Corpuscular Hemoglobin 33.1 PG (26-34); Mean Corpuscular Volume 97.4 fL (80-100); Monocytes Absolute Auto 1100 /uL (0-900); Monocytes Percent Auto 9.5 % (3-14); Neutrophils Absolute Auto 8600 /uL (1500-7000); Neutrophils Percent Auto 73.4 % (50-75); Platelet Count 142 X10^3/uL (150-400); Red Blood Cell Count 3.72 X10^6/uL (4.0-5.2); Red Cell Distribution Width 13.7 % (11.6-14.8); White Blood Cell Count 11.7 X10^3/uL (4.5-11.0)
--- NOTE | 2021-01-26 07:16 | SUR.OPER ---
Supine on Padded OR bed, head on pillow, safety belt at thigh, arms secured on padded arm boards at <90 degrees abduction. Bump under right buttock. Legs uncrossed with pillow under knees, gel pad to heels, tape over blanket to lower legs.
--- NOTE | 2021-01-26 07:34 | P.HPOB_ITS ---
OB HPI Date/Time Date of admission: 01/26/21 Date Patient Seen: 01/26/21 Time Patient Seen: 07:35 History of Present Condition Chief complaint: IP : 4 Para: 1 Estimated Date of Delivery: 01/27/21 Estimated Gestational Age (weeks): Thirty Narrative: Dhara Cee is a 30 year old female here for repeat C-se ction. No leaking fluid. No contractions. Feeling well. is went well without issues desires tubal ligation Indications Operative indications ( section): previous uterine surgery History of Present care: good care Dating criteria: LMP confirmed by 1st trimester US Ultrasounds: normal mid trimester US Obstetrical complications: none Medical complications: none Preadmission Labs Blood type: B (+) positive -: Antibody screen: negative, GBS status: negative, HBsAG: negative, HIV: neg ative, HSV 1: negative, HSV 2: positive and RPR/VDLR: negative -: Chlamydia screen: not detected and Gonorrhea screen: not detected -: Rubella: immune and Varicella: immune HCT: 34 HCAB: negative PAP: Normal Prior (ies) History: 721/1639 week spinal 5 lb 15 oz female 06/29/2018 19 week down syndrome termination 02/10/2027 week SAB Evaluation Evaluation Laboratory results: Laboratory Tests 01/26/21 01/26/21 06:40 06:50 WBC 11.7 H RBC 3.72 L Hgb 12.3 Hct 36.3 MCV 97.4 MCH 33.1 MCHC 34.0 RDW 13.7 Plt Count 142 L Neut % (Auto) 73.4 Lymph % (Auto) 14.8 L [place] % (Auto) 9.5 Eos % (Auto) 1.8 L Baso % (Auto) 0.5 Neut # (Auto) 8600 H Lymph # (Auto) 1700 [place] # (Auto) 1100 H Eos # (Auto) 200 Baso # (Auto) 100 SARS-CoV-2 (PCR) Negative PFSH Medical History No significant medical problems Social History Smoking Status: Former smoker Meds Home Medications and Allergies Home Medications Medication Instructions Recorded Confirmed Type valacyclovir 500 mg PO BID 01/26/21 01/26/21 History Allergies Allergy/AdvReac Type Severity Reaction Status Date / Time No Known Drug Allergies Allergy Verified 01/26/21 06:50 Review of Systems Review of Systems ROS: Yes All systems reviewed with the patient and are negative except as otherwise documented Exam Vital Signs (past 8 hours): - 01/26/21 06:35 Blood Pressure 140/83 Narrative Exam Narrative: Alert female no acute distress. Lungs are clear. Heart regular rate and rhythm. Abdomen is gravid vertex extremities without cyanosis clubbing edema. Objective Labs Result Diagrams: 01/26/21 06:50 Labs: Laboratory Results - last 24 hr 01/26/21 01/26/21 06:40 06:50 WBC 11.7 H RBC 3.72 L Hgb 12.3 Hct 36.3 MCV 97.4 MCH 33.1 MCHC 34.0 RDW 13.7 Plt Count 142 L Neut % (Auto) 73.4 Lymph % (Auto) 14.8 L [place] % (Auto) 9.5 Eos % (Auto) 1.8 L Baso % (Auto) 0.5 Neut # (Auto) 8600 H Lymph # (Auto) 1700 [place] # (Auto) 1100 H Eos # (Auto) 200 Baso # (Auto) 100 SARS-CoV-2 (PCR) Negative Assessment and Plan Assessment and Plan Assessment and Plan narrative: 39+ week intrauterine with good dates and no issues here for repeat . Will proceed for operative delivery.
[2021-01-26] MEDS: CEFOTETAN 2 GM in SODIUM CHLORIDE 0.9% 100 ML 200 ML IV (08:00)
--- NOTE | 2021-01-26 08:27 | SUR.OPER ---
VIABLE FEMALE INFANT DELIVERED AT 0822. CORD BLOOD AND PLACENTA TO OB WITH RN
[2021-01-26 09:24] VITALS: BP 127/56; PULSE 65; RESP 12; TEMP 36.3; O2SAT 97
--- NOTE | 2021-01-26 09:27 | PM.OP.1 ---
Operative Date/Time/Diagnoses Date of procedure: 01/26/21 Time of procedure: 09:28 Pre-op diagnosis: Term intrauterine previous section desired sterilization Post-op diagnosis: same Procedure & Clinicians Procedure: Secondary low-transverse section, bilateral partial salpingectomy Same procedure as scheduled: Yes Indications: Term intrauterine previous section Surgeon: Roderick Dodson Composition Instructor: Ally Noriega Click Yes if Unassisted: No Anesthesia Type: Spinal Operative Notes Findings: Viable female infant weighing 3139 g Apgars 9 and 9. Normal pelvic organs. Closure Type: primary Specimen(s): none sent Applied: catheter Estimated Blood Loss (mL): 600 Blood products transfused: none Procedure in detail: Patient was consented in usual manner in discussion was had questions were asked today. No other changes. Patient was feeling well. She was placed in a wheelchair in taken to the operative theater. Spinal was placed without complications by Anesthesia. Excellent result. She was placed in the supine position prepped and draped in the usual manner after العراقي was present. A Pfannenstiel incision was then made through the previous scar to the fascia in the midline this was then extended bluntly through the subcutaneous tissue. The midline fascia was then scored and extended laterally with scissors. Colchrys were used to elevate the fascia and bluntly dissected off the muscle layer. This is repeated inferiorly without complications. Small amount of sharp dissection was done on fairly to get good result. The midline was then entered in the perineum with blunt dissection and once established was extended inferiorly bluntly. Small amount of the muscle layer with needed to be incised under direct visualization was scissors. Excellent result. Bladder blade was placed. Bladder flap was then incised and developed and bladder blade was placed into the bladder flap. A low transverse incision was since cord across the uterus and then in the midline until fluid was noted which was clear. This was extended bluntly. The hand was then grasped and attempted to be delivered without success and VAC was placed delivery was then undertaken without any complications. Head was delivered bulb suctioned and long with shoulder pain and rest of the body came easily. Child was crying aggressively. Cord was clamped and cut and was handed off to nurse. No resuscitation was required. Cord bloods were obtained. Placenta was then manually extracted was somewhat difficult and seemed to be somewhat adhered but complete removal was undertaken. Wet lap sponge was then used to clean the uterine cavity x2. Ring forceps were then used to grasp both edges of the uterine incision along with inferior lip of the incision. Range rhythm passed into the vaginal area through the cervix and handed off the operative theater. Uterus incision was then closed with running 0 chromic locked. A 2nd imbricating stitch was then done there was some leaking on the left side and the imbricating suture line was locked with excellent result. Irrigation was then done and removed. We then went to the left tube which was grasped with a [place] and elevated a 0 Cat got was used to create a loop. The mesosalpinx was then pierced with hemostats and 3-0 silk was then used to tie above the suture line period on both sides of the loop. The intervening loop was then removed. No bleeding was noted. It was released into the abdomen. This was repeated on the right side without complications. We root then went back to the uterine incision and no bleeding was noted. Bladder flap was closed with 3-0 Vicryl in a running nature. Perineum was then closed with 2-0 Vicryl running. Muscle layer was then approximated with 2 2-0 Vicryl interrupted sutures. Fascia was then closed with running 1 chromic. Irrigation was done. No bleeding was noted in the subcutaneous tissue. 3-0 Vicryl interrupted sutures were used to approximate the wound edge. The wound was closed with running 4-0 subcutaneous Vicryl. Steri-Strips and dressing were applied. EBL 600 cc. Mother and infant were in stable condition. Transferred to recovery and then to labor and delivery Complications: none Post-operative Condition: stable
[2021-01-26 09:29] VITALS: BP 110/56; PULSE 68; RESP 10; O2SAT 96
[2021-01-26 09:34] VITALS: BP 115/56; PULSE 72; RESP 12; O2SAT 97
[2021-01-26 09:39] VITALS: BP 112/58; PULSE 77; RESP 13; TEMP 36.5; O2SAT 96
--- NOTE | 2021-01-26 09:55 | SUR.PHASEI ---
Pt transferred to - 4. Bedside handoff with RAMILA Boothe. Uterus now 4/U. Dark blood expressed, no clots. Dr Dodson called to bedside by RAMILA Boothe.
[2021-01-26] MEDS: METHYLERGONOVINE 0.2 MG/ML VIAL IM (10:09)
[2021-01-26] MEDS: DEXTROSE 5%-LACTATED RINGERS 1,000 ML 125 ML IV (10:15)
[2021-01-26] MEDS: LANOLIN OINT 7 GM 1 APPLIC TOP (10:15)
[2021-01-26] MEDS: KETOROLAC 30 MG/ML VIAL IV ×2 (12:22→18:59)
[2021-01-26] MEDS: METHYLERGONOVINE 0.2 MG TABLET PO ×2 (15:36→21:02)
[2021-01-26] MEDS: valACYclovir 500 MG TABLET PO (21:01)
[2021-01-27] MEDS: KETOROLAC 30 MG/ML VIAL IV (04:13)
[2021-01-27 06:28] LABS: Hematocrit 32.9 % (36-46); Hemoglobin 11.2 g/dL (12.0-16.0)
--- NOTE | 2021-01-27 08:31 | P.DS_ITS ---
Discharge Providers Provider Date of admission: 01/26/21 05:51 Discharge Date: 01/27/21 Primary care physician: Ally Noriega MD Consults: 01/26/21 10:02 Consult to Facility Manager Histology Routine Comment: Discharge provider: Roderick Dodson MD Summary Hospital Course Date Patient Seen: 01/27/21 Time Patient Seen: 08:32 Diagnoses: Patient presented for routine section repeat tubal ligation. She is feeling well with no problems. Procedure went well without significant issue and she was transferred to recovery. For felt to have a slightly enlarged uterus and manual massage was undertaken without significant bleeding show no significant bleeding during the 1st postop day or 2nd. She was given Methergine to make sure we remained firm which we did. Postop day 1 hematocrit was for. She was up mobilizing on day of surgery and had her catheter pulled on day of surgery. She is feeling well. Pain was well controlled with minimal pain medicines. On day 1 postop she was requesting to go home felt she could do everything she needed to had could help. Her bleeding was well controlled. Her Masterson crit was stable for and her pain was well controlled. She had no other significant change or complaint. Would usual discussion of limitations status post surgery on activity. Concerning signs and symptoms of infection or wound issues. Wound care. Usual depression. Questions answered. Follow up with me 2 weeks Peripartum Data Infant Delivery Method: Section Laceration Description: None Procedures: Secondary low-transverse section with partial salpingectomy Status at Discharge Cognitive/behavioral status at discharge: oriented Functional status at discharge: independent ambulation Overall status at discharge: patient is progressing back to baseline Time Spent with Patient Time attestation: Total time spent providing and/or coordinating discharge services: Time spent: Greater than 30 minutes Objective Labs Result Diagrams: 01/27/21 06:10 Labs: Laboratory Results - last 24 hr 01/27/21 06:10 Hgb 11.2 L Hct 32.9 L Exam Vital Signs (past 8 hours): Oxygen Delivery Method Room Air Narrative Exam Narrative: Alert smiling mildly fatigued female no acute distress. Lungs are clear. Heart regular rate and rhythm. Incision is clean dry. Uterus is firm at umbilicus. Minimal tenderness. Extremities without cyanosis clubbing edema. No calf tenderness. Discharge Plan Discharge Plan Patient Disposition: Home Provider Discharge Comment: can be discharged later this afternoon if stable Discharge orders & Medications Prescriptions: New ibuprofen 600 mg Tablet 600 mg PO Q6HR PRN (Reason: Fever/Mild Pain (1-3)) Qty: 90 RF: 0 oxycodone-acetaminophen 5-325 mg Tablet 1 tab PO Q4HR PRN (Reason: Pain, Moderate (4-6)) Qty: 20 RF: 0 Continued valacyclovir 500 mg tablet 500 mg PO BID RF: 0 Follow up/Referrals: Roderick Dodson MD [Physician] - 2 Weeks (Please call for appointment) Ally Noriega MD [Primary Care Provider] - Discharge Health Status Multidrug resistant organism: No MDRO Diet/Activity/Treatments Diet: Diet as Tolerated Activity: can ambulate as tolerated. No lifting greater than 10pounds Skin/Wound/Dressing Care Report to your healthcare provider any signs of infection, such as:: chills, fever, night sweats, increased pain, unusual drainage and unusual redness Dressing: once dressing removed no need to dress keep dry Discharge Data Primary Care Provider: Ally Noriega
[2021-01-27] MEDS: valACYclovir 500 MG TABLET PO (11:18)
[2021-01-27] MEDS: PRENATAL VIT,CALC/IRON/FOLIC 1 TABLET 1 TAB PO (11:18)
[2021-01-27 15:42] VITALS: BP 112/58; PULSE 77; RESP 13; TEMP 36.5
== END 2021-01-27 17:00 | disposition home or self-care (01) | DRG 784 ==
PROVIDERS: Admitting Provider Family Medicine; PCP Family Medicine; Referring Provider Family Medicine; Visit Provider Family Medicine
PROC: 10D00Z1 Extraction of Products of Conception, Low, Open Approach (ICD-10-PCS; CPT 59514; principal; 2021-01-26 07:45)
DX: O34.219 Maternal care for unspecified type scar from previous cesarean delivery (principal); O98.32 Other infections with a predominantly sexual mode of transmission complicating childbirth; B00.9 Herpesviral infection, unspecified; Z30.2 Encounter for sterilization; Z3A.39 39 weeks gestation of pregnancy; Z37.0 Single live birth; Z20.822 Contact with and (suspected) exposure to COVID-19
CPT/HCPCS: 36415; 59050; 85014; 85018; 85025; 86850; 86900; 86901; 87635; C9803; J0171; J1100; J1885; J2210; J2274; J2405; J2590; J7121

== ENCOUNTER 2021-04-19 14:18 | Emergency (ER) | payer OTHER, SELFPAY ==
[2021-04-19] VITALS (13 sets, daily range): BP systolic 116–136; BP diastolic 60–83; PULSE 84–105; RESP 13–33; TEMP 36.6; O2SAT 92–98
--- NOTE | 2021-04-19 14:27 | DI.CT.S_ITS ---
PROCEDURE: CT HEAD/BRAIN WO CON INDICATIONS: first time seizure TECHNIQUE: Noncontrast 4.5 mm thick angled axial sections acquired from the foramen magnum to the vertex, with coronal and sagittal reformats. For radiation dose reduction, the following was used: automated exposure control, adjustment of mA and/or kV according to patient size. COMPARISON: None. FINDINGS: Image quality: Excellent. CSF spaces: Basal cisterns are patent. No extra-axial fluid collections. Ventricles are normal in size and shape. Brain: No midline shift. No intracranial masses or hemorrhage. Culver-white matter interface is normal. Skull and face: Calvarium and visualized facial bones are intact, without suspicious lesions. Sinuses: Visualized sinuses and mastoids are clear. IMPRESSION: Source of seizure activity is not found, no trauma from seizure is seen. Dictated by: Jeremias Liu M.D. on 04/19/2021 at 16:02 Approved by: Jeremias Liu M.D. on 04/19/2021 at 16:02
[2021-04-19 14:36] LABS: Add Manual Diff / Slide Review NO; Basophils Absolute Auto 100 /uL (0-100); Basophils Percent Auto 0.7 % (0-2); Eosinophils Absolute Auto 200 /uL (0-450); Eosinophils Percent Auto 1.9 % (2-4); Hematocrit 49.2 % (36-46); Hemoglobin 16.1 g/dL (12.0-16.0); Lymphocytes Absolute Auto 6500 /uL (1100-4500); Lymphocytes Percent Auto 50.5 % (25-40); Mean Corpuscular HGB Conc 32.6 % (30-36); Mean Corpuscular Hemoglobin 30.9 PG (26-34); Mean Corpuscular Volume 94.5 fL (80-100); Monocytes Absolute Auto 1100 /uL (0-900); Monocytes Percent Auto 8.2 % (3-14); Neutrophils Absolute Auto 5000 /uL (1500-7000); Neutrophils Percent Auto 38.7 % (50-75); Platelet Count 288 X10^3/uL (150-400); Red Cell Distribution Width 12.7 % (11.6-14.8); White Blood Cell Count 12.9 X10^3/uL (4.5-11.0)
[2021-04-19 14:42] LABS: Ethanol (ETOH) 18 mg/dL; Magnesium 2.3 mg/dL (1.6-2.3)
[2021-04-19 14:52] LABS: Albumin 5.5 g/dL (3.5-5.0); Albumin Globulin Ratio 1.5 (1.0-2.8); Alkaline Phosphatase 70 U/L (38-126); Aspartate Aminotransferase 58 IU/L (14-36); BUN Creatinine Ratio 11.5 (6-22); Bilirubin Total 0.6 mg/dL (0.2-1.3); Blood Urea Nitrogen 12 mg/dL (7-17); Calcium 9.8 mg/dL (8.4-10.2); Carbon Dioxide 12 mmol/L (22-32); Chloride 102 mmol/L (98-107); Estimated Glomerular Filt Rate > 60.0 mL/min (>60); Globulin 3.7 g/dL (1.7-4.1); Glucose 97 mg/dL (70-100); HEMOLYSIS < 15 (0-50); Potassium 3.2 mmol/L (3.4-5.1); Sodium 141 mmol/L (137-145); Total Protein 9.2 g/dL (6.3-8.2)
[2021-04-19 14:58] LABS: Alanine Aminotransferase 59 IU/L (<35)
[2021-04-19 14:59] LABS: Prolactin 36.1 ng/mL (3.0-18.6)
--- NOTE | 2021-04-19 15:23 | PC.NURSE ---
attempted orthostatics, weak standing and needed to sit. no change in HR. orthostatics incomplete. receiving IV fluids, GCS 15 at this time. at bedside.
--- NOTE | 2021-04-19 15:37 | ED_ITS ---
HPI - Seizure General Chief Complaint: Seizure Stated Complaint: Seizure Time Seen by Provider: 04/19/21 14:23 Source: patient, family and EMS Mode of arrival: EMS History of Present Illness HPI Narrative: Patient is a 30-year-old female who presents after a first-time seizure witnessed by . He states he was sitting at the table looking at his plate when he suddenly heard some moaning her arms were brought into her chest she started shaking she fell off the chair eyes rolled in back of her head and was foaming at the mouth. It lasted for approximately 5 minutes. She was confused when she woke up while in the emergency department. She has a obvious sign of tongue injury. She denies any prior history of seizure. She is new mom baby is 2 and half months. She states that she has been sleeping getting a 5- 1/2 hours chunks of sleep. She is nursing which going well. She admits to drinking over a bottle of wine last night. She says that she typically does not drink alcohol she certainly does not drink that much a friend was over. She denies taking any medications. She likely has an appointment with her primary care provider tomorrow to check IUD complaint: seizure Onset (ago): minute(s) Description of Episode: loss of consciousness and tonic-clonic movement Related Data Home Medications Medication Instructions Recorded Confirmed valacyclovir 500 mg PO BID 01/26/21 01/26/21 Previous Rx's Medication Instructions Recorded ibuprofen 600 mg PO Q6HR PRN #90 tab 01/27/21 oxycodone-acetaminophen 1 tab PO Q4HR PRN #20 tab 01/27/21 Allergies Allergy/AdvReac Type Severity Reaction Status Date / Time No Known Drug Allergies Allergy Verified 01/26/21 06:50 Review of Systems Review of Systems Narrative: GENERAL: Denies chills, fatigue, malaise, fever, sweats, travel HEENT: Denies sinus pain, ear pain, sore throat, difficulty swallowing, neck pain RESPIRATORY: Denies dyspnea, cough, wheezing, hemoptysis, sputum. CARDIOVASCULAR: Denies chest pain, palpitations, orthopnea, edema GASTROINTESTINAL: Denies nausea, vomiting, abdominal pain, diarrhea, constipation, melena. : Denies dysuria, frequency, incontinence, hematuria, urinary retention, flank pain. MUSCULOSKELETAL: Denies weakness, joint pain, or bony pain SKIN: No rash, no erythema, no pruritus NEUROLOGIC: See HPI PSYCHIATRIC: No concerning psychosocial issues. 12 point review of systems is negative except for those stated above and HPI Patient History Medical History (Updated 04/19/21 @ 18:08 by Amelia Mathias DO) No significant medical problems Social History Smoking Status: Former smoker Smoking Status: Former smoker alcohol intake frequency: 0-2 drinks per day Substance Use Type: does not use Exam Initial Vital Signs Initial Vital Signs: Vital Signs Pulse Rate 92 H 04/19/21 14:23 Blood Pressure 130/76 04/19/21 14:23 Pulse Oximetry 93 04/19/21 14:23 GENERAL: Alert 30-year-old female appears mildly confused able to follow come and in no acute distress. HEENT: Head atraumatic,EOMI, pupils reactive, face symmetric, tongue injury CARDIOVASCULAR: Regular rate and rhythm without murmurs, rubs or gallops. RESPIRATORY: Breath sounds equal bilaterally, no wheezes rales or rhonchi. ABDOMEN: Soft, nontender. Normoactive bowel sounds all 4 quadrants. No guarding or rebound. EXTREMITIES: Normal range of motion, no clubbing or edema. Neurovascularly intact NEUROLOGICAL: Alert and oriented x4.Normal gait and speech. Cranial nerves II through XII grossly intact. Good [id number], good [id number], strength equal bilaterally, no dysarthria or aphasia, sensation in tact to soft touch bilaterally, no visual changes, no facial droop SKIN: Warm, dry, no laceration, no petechiae, no rashes or lesions. Course Orders Ordered: ED Orders 04/19/21 14:23 Complete Blood Count AUTO DIFF Stat Comprehensive Metabolic Panel Stat Ethanol (ETOH) Stat Magnesium Stat Prolactin Stat 04/19/21 14:26 EKG-12 Lead Stat 04/19/21 14:27 CT head/brain wo con Stat 04/19/21 18:06 Urinalysis and Microscopic Stat 04/19/21 18:07 Test Urine Stat Urine Drug Screen, Rapid Stat Discontinued Medications Sodium Chloride (Normal Saline 0.9%) 1,000 mls @ 1,000 mls/hr IV BOLUS ONE Stop: 04/19/21 15:25 Last Admin: 06/06/21 15:32 Dose: Not Given Documented by: JERAD Vital Signs Vital signs: Vital Signs - 8 hr 04/19/21 14:23 04/19/21 14:30 04/19/21 15:00 Temperature Pulse Rate 92 H 92 H 97 H Pulse Rate [Orthostatic Lying] Pulse Rate [Orthostatic Sitting] Respiratory Rate 13 18 Blood Pressure 130/76 127/83 136/72 Blood Pressure [Orthostatic Lying] Blood Pressure [Orthostatic Sitting] Pulse Oximetry 93 94 92 04/19/21 15:12 04/19/21 15:16 04/19/21 15:27 Temperature 97.8 F Pulse Rate 93 H 105 H Pulse Rate [Orthostatic Lying] 98 H Pulse Rate [Orthostatic Sitting] 98 H Respiratory Rate 21 17 Blood Pressure 122/72 134/61 Blood Pressure [Orthostatic Lying] 122/72 Blood Pressure [Orthostatic Sitting] 134/61 Pulse Oximetry 96 98 04/19/21 15:30 04/19/21 16:00 04/19/21 16:35 Temperature Pulse Rate 87 89 85 Pulse Rate [Orthostatic Lying] Pulse Rate [Orthostatic Sitting] Respiratory Rate 13 17 13 Blood Pressure 116/63 118/64 Blood Pressure [Orthostatic Lying] Blood Pressure [Orthostatic Sitting] Pulse Oximetry 92 96 97 04/19/21 17:00 04/19/21 17:15 04/19/21 17:30 Temperature Pulse Rate 84 97 H 90 Pulse Rate [Orthostatic Lying] Pulse Rate [Orthostatic Sitting] Respiratory Rate 16 33 H 25 H Blood Pressure 124/70 Blood Pressure [Orthostatic Lying] Blood Pressure [Orthostatic Sitting] Pulse Oximetry 97 97 98 04/19/21 18:14 Temperature Pulse Rate 85 Pulse Rate [Orthostatic Lying] Pulse Rate [Orthostatic Sitting] Respiratory Rate Blood Pressure 123/60 Blood Pressure [Orthostatic Lying] Blood Pressure [Orthostatic Sitting] Pulse Oximetry 98 MDM - Seizure Lab Data Attestation: I reviewed the patient's lab results. Result diagrams: 04/19/21 14:23 04/19/21 14:23 Labs: Lab Results 04/19/21 04/19/21 04/19/21 Range/Units 14:23 14:23 14:23 WBC 12.9 H (4.5-11.0) X10^3/uL RBC 5.20 (4.0-5.2) X10^6/uL Hgb 16.1 H (12.0-16.0) g/dL Hct 49.2 H (36-46) % MCV 94.5 (80-100) fL MCH 30.9 (26-34) PG MCHC 32.6 (30-36) % RDW 12.7 (11.6-14.8) % Plt Count 288 (150-400) X10^3/uL Neut % (Auto) 38.7 L (50-75) % Lymph % (Auto) 50.5 H (25-40) % Bollinger % (Auto) 8.2 (3-14) % Eos % (Auto) 1.9 L (2-4) % Baso % (Auto) 0.7 (0-2) % Neut # (Auto) 5000 (8786-1171) /uL Lymph # (Auto) 6500 H (3758-5503) /uL Bollinger # (Auto) 1100 H (0-900) /uL Eos # (Auto) 200 (0-450) /uL Baso # (Auto) 100 (0-100) /uL Sodium 141 (137-145) mmol/L Potassium 3.2 L (3.4-5.1) mmol/L Chloride 102 (98-107) mmol/L Carbon Dioxide 12 L (22-32) mmol/L BUN 12 (7-17) mg/dL Creatinine 1.04 (0.52-1.04) mg/dL Estimated GFR > 60.0 (>60) mL/min BUN/Creatinine Ratio 11.5 (6-22) Glucose 97 (70-100) mg/dL Calcium 9.8 (8.4-10.2) mg/dL Magnesium 2.3 (1.6-2.3) mg/dL Total Bilirubin 0.6 (0.2-1.3) mg/dL AST 58 H (14-36) IU/L ALT 59 H (<35) IU/L Alkaline Phosphatase 70 (38-126) U/L Total Protein 9.2 H (6.3-8.2) g/dL Albumin 5.5 H (3.5-5.0) g/dL Globulin 3.7 (1.7-4.1) g/dL Albumin/Globulin Ratio 1.5 (1.0-2.8) Prolactin 36.1 H (3.0-18.6) ng/mL Urine Test (Negative) Ethyl Alcohol 18 H ( - 10) mg/dL 04/19/21 Range/Units 18:07 WBC (4.5-11.0) X10^3/uL RBC (4.0-5.2) X10^6/uL Hgb (12.0-16.0) g/dL Hct (36-46) % MCV (80-100) fL MCH (26-34) PG MCHC (30-36) % RDW (11.6-14.8) % Plt Count (150-400) X10^3/uL Neut % (Auto) (50-75) % Lymph % (Auto) (25-40) % Bollinger % (Auto) (3-14) % Eos % (Auto) (2-4) % Baso % (Auto) (0-2) % Neut # (Auto) (0361-3285) /uL Lymph # (Auto) (0156-6216) /uL Bollinger # (Auto) (0-900) /uL Eos # (Auto) (0-450) /uL Baso # (Auto) (0-100) /uL Sodium (137-145) mmol/L Potassium (3.4-5.1) mmol/L Chloride (98-107) mmol/L Carbon Dioxide (22-32) mmol/L BUN (7-17) mg/dL Creatinine (0.52-1.04) mg/dL Estimated GFR (>60) mL/min BUN/Creatinine Ratio (6-22) Glucose (70-100) mg/dL Calcium (8.4-10.2) mg/dL Magnesium (1.6-2.3) mg/dL Total Bilirubin (0.2-1.3) mg/dL AST (14-36) IU/L ALT (<35) IU/L Alkaline Phosphatase (38-126) U/L Total Protein (6.3-8.2) g/dL Albumin (3.5-5.0) g/dL Globulin (1.7-4.1) g/dL Albumin/Globulin Ratio (1.0-2.8) Prolactin (3.0-18.6) ng/mL Urine Test Negative (Negative) Ethyl Alcohol ( - 10) mg/dL Point of Care Testing Glucose POC [address] scan - head: Radiologist's Impression: PROCEDURE: CT HEAD/BRAIN WO CON INDICATIONS: first time seizure TECHNIQUE: Noncontrast 4.5 mm thick angled axial sections acquired from the foramen magnum to the vertex, with coronal and sagittal reformats. For radiation dose reduction, the following was used: automated exposure control, adjustment of mA and/or kV according to patient size. COMPARISON: None. FINDINGS: Image quality: Excellent. CSF spaces: Basal cisterns are patent. No extra-axial fluid collections. Ventricles are normal in size and shape. Brain: No midline shift. No intracranial masses or hemorrhage. Culver-white matter interface is normal. Skull and face: Calvarium and visualized facial bones are intact, without suspicious lesions. Sinuses: Visualized sinuses and mastoids are clear. IMPRESSION: Source of seizure activity is not found, no trauma from seizure is seen. Dictated by: Jeremias Liu M.D. on 04/19/2021 at 16:02 MDM Narrative Medical decision making narrative: Patient has new onset seizure, confirmed by history blood work and exam. History does not seem like it is alcohol withdrawal seizure although she was able to drink quite a bit of alcohol last evening and her level today is still 18. She takes no other medications she is not sleep deprived at this time I recommend she follow-up with her primary care provider she has an appointment with them tomorrow she will likely need referral to Neurology. I discussed with her that she should drive until she is cleared by Neurology. Discharge Plan Departure Patient Disposition: Home Clinical Impression: First time seizure Instructions: DI for Seizure Disorder -- Adult Activity Restrictions/Additional Instructions: DO NOT DRIVE UNTIL YOU HAVE BEEN EVALUATED BY NEUROLOGY *You have been diagnosed with seizure *What to do: It is unclear today what caused your seizure but is obvious that you did have 1. You will need further follow-up with Neurology and your primary care provider. Please avoid alcohol because a can increase your likelihood of having seizures *Continue to take medications as directed *Follow up with your primary care provider tomorrow as scheduled *Return to ER if you should have recurrent seizure, increasing pain weakness numbness or tingling or any new, worsening or concerning symptoms Prescriptions: No Action valacyclovir 500 mg tablet 500 mg PO BID RF: 0 ibuprofen 600 mg Tablet 600 mg PO Q6HR PRN (Reason: Fever/Mild Pain (1-3)) Qty: 90 RF: 0 oxycodone-acetaminophen 5-325 mg Tablet 1 tab PO Q4HR PRN (Reason: Pain, Moderate (4-6)) Qty: 20 RF: 0 Referrals: Ally Noriega MD [Primary Care Provider] -
[2021-04-19 18:27] LABS: Pregnancy Test Urine Negative (Negative)
[2021-04-19 20:40] LABS: Bacteria Urine None Seen; RBC Urine None Seen (0-5/HPF); WBC Urine None Seen (0-5/HPF)
[2021-04-19 20:56] LABS: Bilirubin Urine UA NEGATIVE (NEGATIVE); Color Urine UA YELLOW; Glucose Urine UA NEGATIVE (Negative); Ketones Urine UA 2+ (NEGATIVE); Leukocyte Esterase Urine UA NEGATIVE (NEGATIVE); Nitrite Urine UA NEGATIVE (Negative); Occult Blood Urine UA NEGATIVE (Negative); Protein Urine UA TRACE (Negative); Specific Gravity Urine UA 1.025 (1.000-1.035); Urobilinogen Urine UA 0.2 E.U./dL (0.2)
[2021-04-19 21:01] LABS: UR Morphine/Opiate cutoff 300 Negative (Negative); Ur Creatinine Normal (Normal); Ur Specific Gravity Normal (Normal); Urine Amphetamines Negative (Negative); Urine Barbiturates Negative (Negative); Urine Benzodiazepines Negative (Negative); Urine Cocaine Negative (Negative); Urine MDMA Negative (Negative); Urine Methadone Negative (Negative); Urine Methamphetamines Negative (Negative); Urine Oxycodone Negative (Negative); Urine Phencyclidine Negative (Negative); Urine Tetrahydrocannabinol Negative (Negative); Urine Tricyclic Antidepressant Negative (Negative); Urine pH Normal (Normal)
[2021-04-19 21:03] LABS: pH Urine UA 5.5 (4.5-8.0)
[2021-04-19 21:05] LABS: Appearance Urine UA Clear; Culture Indicated Urine Cult Not Indicated
== END 2021-04-19 18:17 | disposition home or self-care (01) ==
PROVIDERS: Emergency Provider Emergency Medicine; PCP Family Medicine
DX: R56.9 Unspecified convulsions (principal)
CPT/HCPCS: 70450; 80053; 80305; 80320; 81001; 81025; 82962; 83735; 84146; 85025; 93005; 99283; 99284

== ENCOUNTER → 2021-05-05 17:46 | Outpatient (CLI) | payer OTHER, SELFPAY ==
--- NOTE | 2021-05-05 | DI.MRI.S_ITS ---
PROCEDURE: MR HEAD/BRAIN WO CON INDICATIONS: unspecified convulsions/ seizures TECHNIQUE: Noncontrast axial T1 spin echo, axial T2 fast spin echo, sagittal and axial FLAIR, coronal T2 fast spin echo, axial gradient echo, axial diffusion and ADC through the brain. COMPARISON: None. FINDINGS: Image quality: Excellent. CSF Spaces: Basal cisterns are patent. No extra-axial fluid collections. Ventricles are normal in size and shape. Brain: No intracranial masses or hemorrhage. Culver/white matter interface is normal. Brainstem appears normal. Diffusion-weighted images demonstrate no acute ischemic insult. No chronic ischemic insults. Normal intravascular flow voids are present. Both hippocampal formations show appropriate volume, morphology and signal characteristics. Skull and face: Calvarium has normal marrow signal. Orbits appear normal. Sinuses: Sinuses and mastoids are clear. IMPRESSION: Unremarkable MRI of the brain without contrast. Dictated by: Paul Randhawa M.D. on 05/05/2021 at 18:16 Approved by: Paul Randhawa M.D. on 05/05/2021 at 18:19
== END ==
PROVIDERS: PCP Family Medicine; Referring Provider Family Medicine; Visit Provider Family Medicine
DX: R56.9 Unspecified convulsions (principal)
CPT/HCPCS: 70551

== ENCOUNTER → 2023-02-27 13:50 | Outpatient (CLI) | payer OTHER, SELFPAY | PROVIDERS: PCP Family Medicine; Visit Provider Nurse Practitioner Family | DX: J02.9 Acute pharyngitis, unspecified (principal) | CPT/HCPCS: 87070 ==

== ENCOUNTER → 2024-07-26 15:51 | Outpatient (CLI) | payer OTHER, SELFPAY ==
--- NOTE | 2024-08-06 16:04 | DIET.OUTPTC ---
Dietary Outpatient Consultation Note Consultation Date: 07/26/2024 Assessment: 34 y F referred to dietitian for abnormal weight gain. Solange reports eating healthy and exercising for last 6 yrs and inability to lose weight. Lost 20 lb ~3 yrs ago while breast feeding after . Noticed she slowly gained it back over time. All labs WNL. Recc by PCP to stop collagen and biotin and recheck thyroid. Day schedule/Diet recall: 5-5:30a- 20-30 min weight-based workout + walk 1hr to 1/2 hour (3-4 mi) Work 8a-5:30p, walk on lunch break -2 mi. Family time Overall: 10k-15k steps Takes 1 day off from weigh based workout 7:30-8:30a: protein drink- premier 10:30a: yogurt okios kyrgyz and fruit lunch 12-1p: meal prep 2:30-3p: laughing cheese, crackers + pepper dinner: pork, chicken or steak, pasta or rice, salad yogurt+ pB powder or home popped popcorn, a spray of I can't believe its not butter Tracks calorie with my fitness pal: 158 g protein, 135 g CHO, 25 g fiber, 70 g fat, 58 g sugar, 17 g SFA 1800 kcals - 30-35% CHO, 35% fat, 30-35% protein Notes she struggles to get the 158 g protein in daily. 40 oz y9=174 oz water 5-6 hours sleep Ht: 56.5 Wt: 170 lb (77.27 kg) BMI: 27 Nutrition Diagnosis: Excessive protein intake r/t food and nutrition related knowledge deficit aeb diet recall showing protein intake at 2 g/kg of actual body weight Interventions: Topics discussed included: -Balanced meals, macros, fiber, calories, mediterranean diet pattern -Redistributed macros on pedro for 40-45% CHO, 35% fat, 25% protein EER: MSJ 1500 w/ AF and -500= 2704-5567; 90-100 g protein (1.2-1.3 g/kg) Monitoring and Eval: Will try adjusted macro distribution and continue to focus on healthy eating patterns. Will review diet recall and myfitnesspal at f/u in 6 wks for adjustments as needed Electronically Signed by: Lila Leiva 08/06/24 16:04 Clinical Dietitian [address] [address]
== END ==
LOC: DIET 15:53
PROVIDERS: PCP Family Medicine; Referring Provider Family Medicine
DX: R63.5 Abnormal weight gain (principal); Z71.3 Dietary counseling and surveillance; Z68.27 Body mass index [BMI] 27.0-27.9, adult
CPT/HCPCS: 97802

== ENCOUNTER → 2024-09-06 16:00 | Outpatient (CLI) | payer OTHER, SELFPAY ==
--- NOTE | 2024-09-13 14:38 | DIET.OUTPTC ---
Dietary Outpatient Consultation Note Consultation Date: 09/06/2024 Assessment: Nutrition f/u for 34 y F referred to dietitian for abnormal weight gain. Solange reports 2 lb weight loss. Has reduced protein intake to 65-75 g (.8-1 g/kg) meeting her needs. Is still tracking intakes on pedro. Has worked to get more sleep, closer to 8 hours. 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 Has added a non-starchy veg consistently to her afternoon snack, which has helped keep her satisfied until dinner time. Ht: 56.5 Wt: 168 lb (76.36 kg) BMI: 27 Weight history: 170 lb on 07/26/24 Nutrition Diagnosis: (*initial dx-improved) Excessive protein intake r/t food and nutrition related knowledge deficit aeb diet recall showing protein intake at 2 g/kg of actual body weight Interventions: -Pt has nutrient dense dietary pattern and adequate physical activity weekly. Encouraged continuation with efforts, getting enough sleep, and activity EER: MSJ 1500 w/ AF and -500= 6007-2425; 60-75 g protein Monitoring and Eval: F/u in 6 weeks to re-assess diet recall, sleep, activity, weight, and adjust EER as needed Electronically Signed by: Lila Leiva 09/13/24 14:38 Clinical Dietitian [address] [id number]
== END ==
PROVIDERS: PCP Family Medicine; Referring Provider Family Medicine
DX: R63.5 Abnormal weight gain (principal); Z68.27 Body mass index [BMI] 27.0-27.9, adult; Z71.3 Dietary counseling and surveillance
CPT/HCPCS: 97803

== ENCOUNTER → 2025-08-26 08:53 | Outpatient (CLI) | payer OTHER, SELFPAY ==
--- NOTE | 2025-08-26 08:55 | DI.RAD.S_ITS ---
PROCEDURE: XR HAND RT MIN 3V INDICATIONS: Pain in right hand TECHNIQUE: 3 views of the hand(s) acquired. COMPARISON: None. FINDINGS: Bones: No fractures or dislocations. Carpal bones are normally aligned. No suspicious bony lesions. Soft tissues: No suspicious soft tissue calcifications. IMPRESSION: No acute bony abnormality. Dictated by: Mauricio Pollack M.D. on 08/26/2025 at 9:26 Approved by: Mauricio Pollack M.D. on 08/26/2025 at 9:27
== END ==
PROVIDERS: PCP Family Medicine; Referring Provider Internal Medicine; Visit Provider Internal Medicine
DX: M79.641 Pain in right hand (principal)
CPT/HCPCS: 73130

== ENCOUNTER → 2025-09-03 16:17 | Outpatient (CLI) | payer OTHER, SELFPAY ==
--- NOTE | 2025-09-03 16:19 | DI.RAD.S_ITS ---
PROCEDURE: XR HAND RT 2V INDICATIONS: R HAND PAIN TECHNIQUE: 3 views of the hand(s) acquired. COMPARISON: [facility], , XR HAND RT MIN 3V, 08/26/2025, 8:50. FINDINGS: Bones: There are no osseous abnormalities Joints: The joint spaces are normal in width and alignment without arthritic change. Soft tissues: No soft tissue abnormality. IMPRESSION: Normal. Dictated by: Praneeth Magdaleno M.D. on 09/04/2025 at 12:11 Approved by: Praneeth Magdaleno M.D. on 09/04/2025 at 12:12
== END ==
PROVIDERS: PCP Family Medicine; Referring Provider Internal Medicine; Visit Provider Internal Medicine
DX: M79.641 Pain in right hand (principal)
CPT/HCPCS: 73120

== ENCOUNTER → 2025-10-08 18:46 | Outpatient (CLI) | payer OTHER, SELFPAY ==
--- NOTE | 2025-10-08 18:48 | DI.MRI.S_ITS ---
PROCEDURE: MR HAND RT WO CON INDICATIONS: Right Hand/Wrist Swelling and Pain TECHNIQUE: Noncontrast coronal T1 spin echo and T2 fast spin echo with fat saturation, axial proton density fast spin echo and T2 fast spin echo with fat saturation, sagittal T1 spin echo and STIR through the hand and fingers. COMPARISON: [facility], CR, XR HAND RT MIN 3V, 08/26/2025, 8:50. [facility], CR, XR HAND RT 2V, 09/03/2025, 15:22. FINDINGS: Image quality: Excellent. Bones: There is extensive marrow edema throughout 3rd metacarpal shaft with linear hypointense signal involving 3rd metacarpal base extending to 3rd CMC joint space. Mild periosteal reaction adjacent to the 3rd metacarpal base is also seen. Mild marrow edema also noted in adjacent 4th metacarpal base without definite fracture line. No other area of abnormal marrow signal is seen. Interphalangeal joint(s): The accessory and proper collateral ligaments appear intact. The volar plate demonstrates normal morphology. The extensor central slips appear intact on sagittal images. Metacarpophalangeal joint(s): The accessory and proper collateral ligaments appear intact, as well as the volar plate and adjacent deep transverse metacarpal ligaments. The sagittal bands of the extensor kimble appear normal. Extensor apparatus: The central slips insert normally on the middle phalangeal base. The conjoint and terminal tendons insert normally on the distal phalangeal bases. More proximal portions of the extensor tendons also appear normal. Flexor apparatus: The flexor digitorum superficialis and profundus tendons both appear intact. All annular and cruciform pulleys appear intact, without adjacent soft tissue edema. Soft tissues: Visualized muscles demonstrate normal bulk and internal signal. No intramuscular masses identified. No ganglion cysts. IMPRESSION: 1. Suggestion of acute to subacute nondisplaced fracture through 3rd metacarpal base with extensive marrow edema throughout 3rd metacarpal bone. 2. Likely contusion involving adjacent 4th metacarpal base. No displaced fracture or dislocation. No suspicious bony lesions. 3. Mild soft tissue swelling and edema adjacent to 3rd metacarpal base fracture site. No solid mass or drainable fluid collection. 4. Extensor and flexor tendons of right hand are intact. Medial and lateral collateral ligaments of MCP joints and interphalangeal joints are intact. Dictated by: Reggie Dos Santos M.D. on 10/09/2025 at 8:49 Approved by: Reggie Dos Santos M.D. on 10/09/2025 at 8:53
== END ==
PROVIDERS: PCP Family Medicine; Referring Provider Physician Assistant Surgical; Visit Provider Physician Assistant Surgical
DX: M25.531 Pain in right wrist (principal); M25.431 Effusion, right wrist
CPT/HCPCS: 73218